=== PATIENT | female | born 1965 | race Caucasian/White ===

== ENCOUNTER 2017-09-22 13:43 | Emergency (ER) | payer MEDICAID ==
[2017-09-22] MEDS: HYDROCODONE/APAP (5/325) TAB PO (15:40)
== END 2017-09-22 16:55 | disposition home or self-care (01) ==
LOC: FTE 13:43
DX: M72.2 Plantar fascial fibromatosis (principal); M77.32 Calcaneal spur, left foot; I10 Essential (primary) hypertension; E11.9 Type 2 diabetes mellitus without complications; Z79.82 Long term (current) use of aspirin; Z79.84 Long term (current) use of oral hypoglycemic drugs
CPT/HCPCS: 73630; 73630-LT; 99283-25